=== PATIENT | male | born 1950 | race Caucasian/White ===

== ENCOUNTER 2020-03-23 13:44 | Emergency (ER) | payer OTHER, MEDICARE, BC ==
--- NOTE | 2020-03-23 14:02 | EDM.PDOC ---
ED HPI GENERAL MEDICAL PROBLEM - General Chief Complaint: Laceration Stated Complaint: CUT OFF PART OF HIS INDEX FINGER LEFT HAND Time Seen by Provider: 03/23/20 13:59 Source of Information: Reports: Patient, RN, RN Notes Reviewed History Limitations: Reports: No Limitations - History of Present Illness INITIAL COMMENTS - FREE TEXT/NARRATIVE: Pt presents to ER by POV with c/o that he cut his left index finger on chloe hilda. Denies any other injury. Last Tetanus vaccine >5 yrs ago. Onset: Today, Sudden Duration: Constant Location: Reports: Upper Extremity, Left Quality: Reports: Other (Denies pain) Severity: Moderate Improves with: Reports: None Worsens with: Reports: None Associated Symptoms: Reports: No Other Symptoms - Related Data Allergies Allergy/AdvReac Type Severity Reaction Status Date / Time Sulfa (Sulfonamide Allergy Hives Verified 03/23/20 15:16 Antibiotics) Home Meds: Home Meds Rosuvastatin Calcium 5 mg PO DAILY 03/23/20 [History] Rosuvastatin [Crestor] 10 mg PO DAILY 03/23/20 [History] Past Medical History Cardiovascular History: Reports: High Cholesterol Social & Family History - Family History Family Medical History: Noncontributory - Living Situation & Occupation Living situation: Reports: , with Spouse Occupation: Retired ED ROS GENERAL - Review of Systems Review Of Systems: Comprehensive ROS is negative, except as noted in HPI. ED EXAM, SKIN/RASH Exam: See Below Exam Limited By: No Limitations General Appearance: Alert, WD/WN, No Apparent Distress Throat/Mouth: Normal Voice Head: Atraumatic, Normocephalic Neck: Normal Inspection Respiratory/Chest: No Respiratory Distress Cardiovascular: Normal Peripheral Pulses Extremities: Normal Capillary Refill, Other (1.25cm linear laceration at dorsal left 3rd finger overlying the distal PIP with mallet deformity. 0.75cm linear laceration to distal tip of left 4th finger involving the distal nail.) Neurological: Alert, Oriented, Other (No motor deficits. Decreased sensation to dorsum of distal left 3rd finger.) Psychiatric: Normal Mood Skin: Warm, Dry ED SKIN PROCEDURES - Laceration/Wound Repair Left Distal Dorsal Digit - 4th (Ring) Appearance: Subcutaneous, Linear, Clean Distal NVT: Neuro & Vascular Intact, No Tendon Injury Anesthetic Type: Local Local Anesthesia - Lidocaine (Xylocaine): 1% Plain Local Anesthetic Volume: 3cc Skin Prep: Chlorhexidine (Hibiciens), Saline, Sterile Drape Saline Irrigation (cc's): 500 Exploration/Debridement/Repair: Wound Explored, In a Bloodless Field, Explored to Base, Minimal Debridement, Minimally Undermined, No Foreign Material Found Closed with: Sutures Lac/Wound length In cm: 1.2 Suture Size: 3-0 # of Sutures: 2 Suture Type: Nylon, Interrupted Sterile Dressing Applied: Nurse Tetanus Status Addressed: Yes Complications: No Left Distal Dorsal Digit - 3rd (Middle) Appearance: Subcutaneous, Linear, Clean Distal NVT: Neuro & Vascular Intact, Other (Tendon injury overlying distal PIP with mallet deformity) Anesthetic Type: Local Local Anesthesia - Lidocaine (Xylocaine): 1% Plain Local Anesthetic Volume: 4cc Skin Prep: Chlorhexidine (Hibiciens), Saline, Sterile Drape Exploration/Debridement/Repair: Wound Explored, In a Bloodless Field, Explored to Base, Minimal Debridement, Minimally Undermined Closed with: Sutures Lac/Wound length In cm: 1.2 Suture Size: 4-0 # of Sutures: 6 Suture Type: Nylon, Interrupted Sterile Dressing Applied: Nurse Tetanus Status Addressed: Yes Complications: No - Splinting Left 3rd Digit Splint Site: distal PIP Pre-Procedure NV Status: Normal Post-Procedure NV Status: Normal Splint Material: Aluminum-Foam Splint Design: Sugar Tong Applied & Form Fitted By: Nurse Provider Post-Splint Application NV Check: NV Status Normal, Good Position Complications: No Course - Vital Signs Last Recorded V/S: Last Vital Signs Temp 97.0 F 03/23/20 14:25 Pulse 90 03/23/20 14:25 Resp 18 03/23/20 14:25 BP 170/76 H 03/23/20 14:25 Pulse Ox 97 03/23/20 14:25 - Orders/Labs/Meds Orders: Active Orders 24 hr Category Date Time Status Vaccines to be Administered [RC] PER UNIT ROUTINE Care 03/23/20 14:03 Active Meds: Medications Discontinued Medications Generic Name Dose Route Start Last Admin Trade Name Freq PRN Reason Stop Dose Admin Bacitracin 1 dose 03/23/20 14:03 03/23/20 14:30 Bacitracin Oint 1 Gm TOP 03/23/20 14:04 1 dose ONETIME ONE Administration Cephalexin 500 mg 03/23/20 14:21 03/23/20 14:33 Keflex PO 03/23/20 14:22 500 mg ONETIME ONE Administration Diphtheria/Tetanus/Acell Pertussis 0.5 ml 03/23/20 14:03 03/23/20 14:29 Adacel IM 03/23/20 14:04 0.5 ml .ONCE ONE Administration Lidocaine HCl 30 ml 03/23/20 14:03 03/23/20 14:30 Xylocaine-Mpf 1% INJECT 03/23/20 14:04 30 ml ONETIME ONE Administration Departure - Departure Time of Disposition: 15:23 Disposition: Home, Self-Care 01 Condition: Good Clinical Impression: Laceration of left ring finger with tendon involvement Qualifiers: Encounter type: initial encounter Qualified Code(s): S61.215A - Laceration without foreign body of left ring finger without damage to nail, initial encounter Laceration of left middle finger with damage to nail Qualifiers: Encounter type: initial encounter Foreign body presence: without foreign body Qualified Code(s): S61.313A - Laceration without foreign body of left middle finger with damage to nail, initial encounter - Discharge Information *PRESCRIPTION DRUG MONITORING PROGRAM REVIEWED*: Not Applicable *COPY OF PRESCRIPTION DRUG MONITORING REPORT IN PATIENT DU: Not Applicable Instructions: Mallet Finger, Sutured Wound Care Forms: ED Department Discharge Additional Instructions: Rx: Cephalexin 500mg Wear finger splint as instructed for 2 weeks. Suture removal in 10 days. Keep wounds clean and as dry as possible. Follow up in clinic if the finger tip bends/flexes and is bothersome. Sepsis Event Note (ED) - Focused Exam Vital Signs: Vital Signs Temp Pulse Resp BP Pulse Ox 03/23/20 14:25 97.0 F 90 18 170/76 H 97 - My Orders Last 24 Hours: My Active Orders 03/23/20 14:03 Vaccines to be Administered [RC] PER UNIT ROUTINE - Assessment/Plan Last 24 Hours: My Active Orders 03/23/20 14:03 Vaccines to be Administered [RC] PER UNIT ROUTINE
[2020-03-23] MEDS ORDERED: Bacitracin Oint 1 GM U/D Packet TOP ONE (14:03)
[2020-03-23] MEDS ORDERED: Lidocaine 1% 30 ML SDV INJECT ONE (14:03)
[2020-03-23] MEDS ORDERED: Diphtheria,Pertussis(Acell),Tetanus Vaccine 0.5 ML SDV IM ONE (14:03)
[2020-03-23] MEDS ORDERED: Cephalexin 500 MG Cap PO ONE (14:21)
--- NOTE | 2020-03-23 14:40 | CR ---
EXAMINATION: Fingers Fourth Digit Lt F3 SEX: Male AGE: 69 years CLINICAL HISTORY: 69-year-old male cut fourth (ring) finger with a knife. Interpretation: Skin laceration dorsal aspect of the DIP joint fourth finger (surrounding bandage artifact). Mild flexion deformity suggesting possible extensor tendon injury. Underlying smoothly corticated osseous density without obvious "donor" site that could be able avulsed off of the dorsal aspect base of the distal phalanx. History of older injury? Arthritic degenerative changes but no sign of other fracture/dislocation this or adjacent fingers left hand.
== END 2020-03-23 15:36 | disposition home or self-care (01) ==
LOC: DL.ED 13:44
DX: S56.124A Laceration of flexor muscle, fascia and tendon of left middle finger at forearm level, initial encounter (principal); S61.215A Laceration without foreign body of left ring finger without damage to nail, initial encounter; E78.00 Pure hypercholesterolemia, unspecified; Z79.899 Other long term (current) drug therapy; Z88.2 Allergy status to sulfonamides; Z23 Encounter for immunization; W26.8XXA Contact with other sharp object(s), not elsewhere classified, initial encounter
CPT/HCPCS: 12001; 73140; 90471; 90715; 99283; A9270; J2001